=== PATIENT | female | born 1980 | race African-American/Black ===

== ENCOUNTER 2017-12-11 06:59 | Day surgery (SDC) | payer OTHER ==
[~2017-12-11] VITALS: Ht 142.2 cm; Wt 70.3 kg
[2017-12-11 07:25] VITALS: BP 136/94
[2017-12-11 12:28] VITALS: BP 146/94
== END 2017-12-11 11:50 | disposition home or self-care (01) ==
LOC: DS 06:59 → OR 11:00 → GI 11:00 → DS 11:00
PROVIDERS: Obstetrics & Gynecology
PROC: 0UDB7ZZ Extraction of Endometrium, Via Natural or Artificial Opening (ICD-10-PCS; 2017-12-11)
PROC: 0WJJ4ZZ Inspection of Pelvic Cavity, Percutaneous Endoscopic Approach (ICD-10-PCS; principal; 2017-12-11 09:00)
DX: R10.2 Pelvic and perineal pain (principal); I10 Essential (primary) hypertension; G40.909 Epilepsy, unspecified, not intractable, without status epilepticus
CPT/HCPCS: J0330; J0690; J1170; J2175; J2250; J2405; J2704; J3010; J3490; J7120

== ENCOUNTER 2018-09-03 07:19 | Observation (INO) | payer OTHER ==
--- NOTE | 2018-09-02 07:25 | NUR ---
RECEIVED LAB RESULTS FROM [facility]. HB=7.9, HCT 29.0. LABS FAXED TO DR DORANTES.
[~2018-09-03] VITALS: Ht 142.2 cm; Wt 63.5 kg
[2018-09-03 07:47] VITALS: BP 126/87
--- NOTE | 2018-09-03 11:20 | NUR ---
RECEIVED PATIENT FROM OR VIA [employer]. PATIENT IS S/P DIAGNOSTIC LAP, VITAL SIGNS STABLE; BP: 117/70 HR 100 TEMP 97.1 PULSE OX 95% RR 14, ON ROOM AIR. PATIENT C/O PAIN 06/20, BUT STATES IT IS TOLERABLE AT THIS TIME. PATIENT DENIES SOB. INCISION X 2 NOTED ON ABDOMEN, CDI& NO DRAINAGE NOTED. IV TO RH, CDI& PATENT, NO S/S OF INFILTRATION. CALL LIGHT WITHIN REACH, BED IN LOW POSITION, WILL CONTINUE TO MONITOR FOR CHANGES.
--- NOTE | 2018-09-03 13:04 | NUR ---
PT ADMITTED FOR 23 HOUR OBSERVATION FROM [facility]PS. BELONGINGS TAKEN TO 223B.
[2018-09-03 13:26] VITALS: BP 117/70
[2018-09-03 13:40] VITALS: BP 124/71
--- NOTE | 2018-09-03 14:38 | NUR ---
PATIENT C/O OF PELVIC PAIN TO LEFT SIDE 07/21, MEDICATED PATIENT WITH MOTRIN PER PROTOCOL (SEE EMAR), EDUCATED PATIENT ON PAIN MANAGEMENT AND REPOSITIONED PATIENT FOR COMFORT. WILL CONTINUE TO MONITOR FOR CHANGES, CALL LIGHT WITHIN REACH, BED IN LOW POSITION.
[2018-09-03 17:20] VITALS: BP 111/81
--- NOTE | 2018-09-03 17:30 | NUR ---
DR DORANTES AWARE PATIENT WAS C/O OF HUNGER AND WANTED SOLID FOOD, DR DORANTES GAVE TELEPHONE ORDER/ READBACK FOR REGULAR DIET. DR. DORANTES GAVE TORB FOR PATIENT TO CONTINUE HOME MEDICATION OF LISINOPRIL 20MG PO BID AND KEPPRA 500MG PO BID. WILL CARRY OUT ORDERS AT THIS TIME.
--- NOTE | 2018-09-03 18:30 | NUR ---
PATIENT RESTING IN BED, NO ACUTE DISTRESS NOTED AT THIS. PATIENT DENIES PAIN AT THIS TIME. NO ACUTE CHANGES NOTED THROUGH OUT SHIFT, PATIENT IS STABLE AT THIS TIME. TELE MONITOR IN PLACE. INCISION X2 ABDOMEN CDI & NO DRAINAGE NOTED. IV TO RH SALINE LOCK, NO S/S OF INFILTRATION. CALL LIGHT WITHIN REACH, BED IN LOW POSITION. WILL ENDORSE REPORT TO NIGHT RN.
[2018-09-03 18:37] LABS: CALCIUM 9.3 mg/dL (8.5-10.1); CARBON DIOXIDE 27.4 mmol/L (21-32); CHLORIDE SERUM 108 mmol/L (98-107); CREATININE SERUM 0.8 mg/dL (0.6-1.0); GFR1 > 60 mL/min; GLUCOSE SERUM 94 mg/dL (74-106); POTASSIUM SERUM 4.1 mmol/L (3.5-5.1); SODIUM SERUM 143 mmol/L (136-145)
--- NOTE | 2018-09-03 19:46 | NUR ---
RECEIVED PT FROM DAY SHIFT RN. PT IS ALERT AND ORIENTED TO PERSON PLACE TIME AND SITUATION AND ABLE TO FOLLOW COMMANDS. PT IS CURRENTLY RESTING IN BED WITH FAMILY AT THE BEDSIDE. PT DENIES CHEST PAIN OR SHORTNESS OF BREATH ON ROOM AIR. TELE #[address] INCISION TO ABD X2 BANDAID CDI. PT DENIES ABD PAIN AT THIS TIME. BOWEL SOUNDS ARE HYPOACTIVE. THERE IS A RIGHT HAND 22G IV THAT IS CLEAN DRY AND INTACT, SALINE LOCKED AT THIS TIME. SAFETY MEASURES ARE IN PLACE. BED IS IN THE LOWEST POSITION. CALL LIGHT IS WITHIN REACH. WILL CONITNUE TO MONITOR PT.
[2018-09-03 20:56] VITALS: BP 118/69
--- NOTE | 2018-09-03 21:17 | NUR ---
MORPHINE 4MG GIVEN FOR PAIN 10/10 IN ABD AREA. DILUTED WITH NORMAL SALINE. PUSHED OVER 5 MINUTES. PT TOLERATED WELL. NO ADVERSE REACTIONS NOTED. BREATHING EVEN AND UNLABORED.
--- NOTE | 2018-09-04 00:21 | NUR ---
PT CURRENTLY RESTING IN BED WITH EYES CLOSED. BREATHING IS EVEN AND UNLABORED. NO USE OF ACCESSORY MUSCLES. NO FACIAL GRIMMACING NOTED.
--- NOTE | 2018-09-04 03:05 | NUR ---
ADMINISTERED MORPHINE 4MG. PT COMPLAINED OF ABD PAIN 11/20. EDUCATED PT THAT SHE NEEDS TO WALK IN ORDER TO FACILITATE PERISTALSIS AND RELIEVE STOMACH ACHE. PT EATING LOTS OF CRACKERS S/P PROCEDURE.
[2018-09-04 04:46] VITALS: BP 123/60
--- NOTE | 2018-09-04 05:19 | NUR ---
PT SLEPT IN INTERVALS THROUGHOUT THE NIGHT. COMPLAINTS OF ABD PAIN. OFFERED RELAXATION TECHNIQUES AND MEDICATED PER ORDER (SEE MAR). EDUCATED PT ON THE NEED TO AMBULATE POSTOPERATIVELY IN ORDER TO RELIEVE PAIN IN ABD AREA. EDUCATED PT ON PERISTALSIS AND OFFERED MULTIPLE OCCASIONS TO WALK IN THE HALLWAY WITH PATIENT IN ORDER TO RELIEVE GAS PAINS. PT SLEPT. CURRENTLY RESTIGN IN BED WITH EYES CLOSED. NO FACIAL GRIMAMCING. BREATHING IS EVEN AND UNLABORED. NO SIGNS OF DISTRESS NOTED. SAFETY MEASURES ARE IN PLACE. BED IS IN THE LOWEST POSITION. CALL LIGHT IS WITHIN REACH. WILL ENDORSE CONTINUITY OF CARE TO THE DAY SHIFT RN.
--- NOTE | 2018-09-04 07:40 | NUR ---
PATIENT RESTING IN BED, NO ACUTE DISTRESS NOTED AT THIS TIME. TELE MONITOR IN PLACE, DENIES CHEST PAIN. PATIENT DENIES SOB, ON ROOM AIR. PATIENT DENIES PAIN AND STATES "IM GOOD, NO PAIN". INCISION X2 TO ABDOMEN IS CDI, NO DRAINAGE NOTED AT THIS TIME. PATIENT BOWELS SOUNDS X4 HYPOACTIVE, PATIENT STATES SHE HAS PASSED GAS, EDUCATED PATIENT ON THE IMPORTANCE OF AMBULATING AFTER PROCEDURE TO FACILITATE PERSTALSIS. PATIENT VERBALIZES UNDERSTANDING. IV TO RIGHT HAND SALINE LOCK, NO S/S OF INFILTRATION. CALL LIGHT WITHIN REACH, BED IN LOW POSITION, WILL CONTINUE TO MONITOR FOR CHANGES.
[2018-09-04 09:19] VITALS: BP 117/69
--- NOTE | 2018-09-04 10:25 | NUR ---
DR. DORANTES GAVE TELEPHONE ORDER/ READBACK FOR PATIENT TO BE DISCHARGE HOME. DR DORANTES STATED PATIENT WAS ONLY HERE FOR OBSERVATION. WILL CARRY OUT ORDERS AT THIS TIME, CHARGE NURSE BEVERLY MADE AWARE, AND ASSISTED WITH D/C ORDERS.
[2018-09-04 10:40] VITALS: BP 117/69
--- NOTE | 2018-09-04 11:20 | NUR ---
PATIENT WAS DISCHARGED HOME AT THIS TIME. NO ACUTE CHANGES NOTED THROUGH OUT SHIFT, PATIENT IS STABLE. PATIENT DENIES PAIN UPON DISCHARGE. PATIENT RECEIVED COPY OF D/C INSTRUCTIONS, PATIENT UNDERSTANDS AND AGREES WITH D/C INSTRUCTIONS AND PLAN OF CARE, IN CLUDING FOLLOW UP WITH PCP. PATIENT HAS SCHEDULED APPT TO FOLLOW UP WITH DR. DORANTES, PATIENT AWARE. EDUCATED PATIENT ON INCISION CARE, AND PROVIDED PATIENT WITH EDUCATIONAL MATERIAL. PATIENT UNDERSTANDS TO CONTACT PCP OR LOCAL ER IF WORSENING SYMPTOMS OCCURS SUCH SOB, PAIN, SWELLING, OR TEMP. ALL QUESTIONS & CONCERNS ADDRESSED. PATIENT TOOK HOME ALL PERSONAL BELONGINGS. PATIENT TAKEN DOWN VIA WHEELCHAIR BY DISTRICT MANAGER.
== END 2018-09-04 11:20 | disposition home or self-care (01) | DRG 229 ==
LOC: DS 07:19 → DU 09:35 → OR 10:30 → DS 10:30 → DU 11:05
PROVIDERS: ADMIT Obstetrics & Gynecology
PROC: 0WJJ4ZZ Inspection of Pelvic Cavity, Percutaneous Endoscopic Approach (ICD-10-PCS; principal; 2018-09-03 10:30)
DX: R10.2 Pelvic and perineal pain (principal); G40.909 Epilepsy, unspecified, not intractable, without status epilepticus; N73.6 Female pelvic peritoneal adhesions (postinfective); I10 Essential (primary) hypertension; Z87.442 Personal history of urinary calculi; Z98.51 Tubal ligation status
CPT/HCPCS: C1758; G0378; J0330; J0690; J1170; J2250; J2270; J2405; J2704; J3010; J3490; J7120

== ENCOUNTER 2018-10-28 08:15 | Inpatient (IN) | payer OTHER ==
[2018-10-28] VITALS (8 sets, daily range): BP systolic 126–146; BP diastolic 72–98
[~2018-10-28] VITALS: Ht 142.2 cm; Wt 64.9 kg
--- NOTE | 2018-10-28 08:50 | NUR ---
0815 PATIENT ARRIVES TO UNIT AMBULATORY AND ALERT AND ORIENTED X4. NO SOB NOTED. RESPIRATIONS EVEN AND UNLABORED. DENIES ANY DISTRESS AT THIS TIME. SKIN WARM AND DRY TO TOUCH. PATIENT PROVIDED TEACHING REGARDING PLAN OF CARE AND VERBALIZED UNDERSTANDING. MEDICAL HISTORY VERIFIED AND ALLERGIES ADDRESSED. VSS. COMFORT AND SAFETY MEASURES IN PLACE. CALL LIGHT WITHIN REACH. WILL CONTINUE TO MONITOR.
--- NOTE | 2018-10-28 10:34 | NUR ---
1000 CALLED AND SPOKE WITH YASIR AND DR. DORANTES REGARDING ADMISSION ORDERS FOR MEDICATIONS AND DIET. NEW ORDERS RECEIVED FOR REG DIET AND NPO AFTER MIDNIGHT, MEDICATIONS, AND CMP AFTER 2ND BLOOD TRANSFUSION. NOTED AND CARRIED OUT. PATIENT MADE AWARE. WILL CONTINUE TO MONITOR.
--- NOTE | 2018-10-28 14:20 | NUR ---
RECEIVED PT FROM OUPATIENT. ORIENTED PT TO ROOM AND SURROUNDINGS. IV NOTEDT TO RAC PATENT AND INTACT. INSTRUCTED PT ON THE USE OF CALL LIGHT FOR ASSISTANCE. ENDORSED PT TO PRIMARY NURSE STACIA
--- NOTE | 2018-10-28 14:22 | NUR ---
RECEIVED PATIENT FROM SURU RN AT THIS TIME. PATIENT IS AMBULATING IN ROOM. ALERT AND ORIENTED, DENIES ANY PAIN OR DISCOMFORT AT THIS TIME. HL PATENT RT A/C 20G. AWAITING DR DORANTES TO COME INTO SIGN BLOOD CONSENT SO BLOOD TRANSFUSION CAN BE GIVEN ORDERED. NO ACUTE DISTRESS NOTED.
--- NOTE | 2018-10-28 14:49 | NUR ---
1045 PATIENT ALERT AND AWAKE AND ABLE TO MAKE ALL NEEDS KNOWN. NO SOB NOTED. RESPIRATIONS EVEN AND UNLABORED. PATIENT ADMINISTERED MEDICATIONS ORDERED. PATIENT COMPLAINING OF LOWER ABD PAIN. PATIENT PROVIDED COMFORT MEASURES AND ADMINISTERED PAIN MEDICATIONS FOR PAIN MANAGEMENT. WILL EVALUATE FOR EFFECTIVENESS. COMFORT AND SAFETY MEASURES IN PLACE. WILL CONTINUE TO MONITOR. [address] DORANTES REGARDING REQUIREMENT OF MD SIGNATURE ON BLOOD CONSENT PRIOR TO BLOOD TRANSFUSION ADMINISTRATION. PER OFFICE STATES THAT DR. DORANTES WILL BE ABLE TO SIGN CONSENT LATER THIS AFTERNOON. NOTIFIED PATIENT WITH PATIENT VERBALIZING UNDERSTANDING. PATIENT MADE COMFORTABLE. DENIES ANY PAIN AT THIS TIME. PATIENT TOLERATING PO INTAKE WITH NO COMPLAINTS. WILL CONTINUE TO MONITOR.
--- NOTE | 2018-10-28 14:55 | NUR ---
1355 PATIENT TRANSPORTED TO FLOOR FOR ADMISSION AT THIS TIME VIA [facility] AND ACCOMPANIED BY TEA LEAF READER. PATIENT ALERT AND AWAKE AND ABLE TO MAKE ALL NEEDS KNOWN. ENDORSEMENT GIVEN VIA TELEPHONE TO SURU RN. PATIENT DENIES ANY DISTRESS AT THIS TIME. PATIENT BELONGINGS GIVEN TO PATIENT AND PLACED IN BACK OF [facility]. ALL NEEDS MET.
--- NOTE | 2018-10-28 15:28 | NUR ---
PATIENT SITTING UP IN BED WATCHING TV. REQUESTED JELLO AND CRACKERS. NO C/O PAIN OR DISCOMFORT. NO ACUTE DISTRESS OTED. AWAITING DR DORANTES TO COME IN TO SEE PATIENT THIS AFTERNOON.
--- NOTE | 2018-10-28 17:15 | NUR ---
FIRST UNIT OF PRBC'S STARTED AT THIS TIME ORDERED. CONSENT VERIFIED AND SIGNED BY DR DORANTES AND BY PATIENT. UNIT AND PATIENT VERIFIED BY TWO NURSES PER PROTOCOL. NAME BAND AND BLOOD BANK BAND VERIFIED BY TWO NURSES WELL. VITALS TAKES PRIOR TO START OF TRANSFUSION. PATIENT IS SITTING UP IN BED TALKING ON PHONE. INSTRUCTED PATIENT TO CALL FOR NURSE IF SHE EXPERIENCES ANY CHILLS, FEVER OR ANY OTHER NOTED CHANGE IN HER CONDITION. PATIENT VERBALIZES UNDERSTANDING. WILL CONTINUE TO MONITOR.
--- NOTE | 2018-10-28 17:33 | NUR ---
PATIENT SITTING UP IN BED WATCHING TV. NO S/S OF ANY ADVERSE REACTIONS NOTED FROM BLOOD TRNASFUSION. VITALS STABLE. WILL CONTINUE TO MONITOR.
--- NOTE | 2018-10-28 17:59 | NUR ---
PATIENT SITTING UP IN BED EATING DINNER TRAY. BLOOD TRANSFUSION IN PROGRESS. NO S/S OF ANY ADVERSE REACTION NOTED. PATIENT INFORMED OF THE NEED FOR URINE SPECIMEN. PATIENT VERBALIZED UNDERSTANDING. [facility]
--- NOTE | 2018-10-28 19:00 | NUR ---
RECEIVED PT SITTING UP IN BED WATCHING TV, NO ACUTE DISTRESS OBSERVED. DENIES PAIN OR DISCOMFORT AT THIS TIME. PT WITH HISTORY OF ENDOMETRIOSIS, SCHEDULED HYSTERECTOMY TOMORROW 10/29/[address] MAINOR DORANTES. CONFIRMED CONSENT TO SURGERY SIGNED IN CHART, CONSENT TO ANESTHESIA SIGNED IN CHART. CHECKLIST INITITATED. PT AWARE FOR NEED TO BE NPO AT MIDNIGHT, PT AGREED AND VERBALIZED UNDERSTANDING. FIRST UNIT OF PRBC INFUSING ORDERED VIA IV TO RAC, DRY PATENT, INTACT, AND INFUSING WELL, NO S&S PHLEBITIS OR INFILTRATION NOTED. PT C/O INTERMITTENT PELVIC/VAGIANL PAIN/PRESSURE, WILL MEDICATE WITH PAIN MEDS PRN. AA/OX4, ABLE TO MAKE NEEDS KNOWN, SPEECH CLEAR AND APPROPRIATE. MED-SURG, NO TELE, NO CP. PULSES PALPABLE AND EQUAL THROUGHOUT, NO EDEMA. BREATHING ON RA, EVEN AND UNLABORED, DENIES SOB OR DYSPNEA, LUNGS CTA. ABD ROUND AND SOFT WITH ACTIVE BOWEL SOUNDS, DENIES N/V/D. VOIDS FREELY WITH BRP. PT AWARE FOR NEED TO COLLECT UA AND HCG. AMBULATORY AND ABLE TO REPOSITION SELF IN BED. COMFORT AND SAFETY MEASURES IN PLACE. ALL NEEDS ASSESSED AND ATTENDED TO. CALL LIGHT WITHIN REACH. WILL CONTINUE TO MONITOR
--- NOTE | 2018-10-28 21:30 | NUR ---
BLOOD TRANSFUSION INTIATED ORDERED. PRE-VS: 97.7, HR-89, 143/80, RR-18, 96% ON RA. EDUCATED PT ON S/S OF ADVERSE REACTIONS, PT VERBALIZES UNDERSTANDING. BLOOD TRANSFUSION INFUSING WELL AT 70 ML/HR TO RAC, SITE WNL. NO ACUTE DISTRESS OBSERVED. WILL CONTINUE TO MONITOR.
--- NOTE | 2018-10-28 21:45 | NUR ---
BLOOD TRANSFUSION INFUSING WELL AFTER 15 MIN. VSS: 98.7, HR 81, 133/89, RR 18, 100% ON RA. PT DENIES HAVING ANY S/S OF ADVERSE REACTIONS. BLOOD TRANSFUSION INCREASED TO 150 ML/HR. IV SITE WNL. NO DISTRESS NOTED. CALL LIGHT WITHIN REACH. PRIMARY NURSE UPDATED REGARDING THE BLOOD TRANSFUSION.
[2018-10-28 23:19] LABS: UA SPECIFIC GRAVITY <=1.005 (1.005-1.035); microscopic required? YES; urine erythrocyte TRACE (NEGATIVE)
[2018-10-29 00:05] VITALS: BP 146/98
--- NOTE | 2018-10-29 00:05 | NUR ---
BLOOD TRANSFUSION COMPLETE. VSS: 98.0, HR 91, 146/98, RR 18, 99% ON RA. PT DENIES HAVING ANY S/S OF ADVERSE REACTIONS. NO ACUTE DISTRESS OBSERVED. IV TO RAC PATENT AND INTACT. CALL LIGHT WITHIN REACH. PRIMARY NURSE MARGARITA ROCA UPDATED.
--- NOTE | 2018-10-29 00:12 | NUR ---
2ND UNIT PRBC TRANSFUSION DONE. PT TOLERATED WELL. VITAL SIGNS STABLE. STAT CBC ORDERED POST TRANSFUSION. WILL ANTICIPATE
[2018-10-29 00:43] LABS: BASOPHIL % 0.1 % (0-2); PLATELET COUNT 308 x10^3mcL (130-400)
[2018-10-29 00:44] LABS: RED CELL DISTRIBUTION WIDTH 28.7 % (11.5-14.5)
[2018-10-29 00:57] LABS: rbc morphology (normal/abnorm) ABNORMAL (NORMAL)
[2018-10-29 00:58] LABS: acanthocyte (spur cell) 1+; ovalocyte/elliptocyte 1+; schistocyte (helmet cell) 1+; target cell (codocyte) 1+
[2018-10-29 06:01] VITALS: BP 137/71
--- NOTE | 2018-10-29 06:15 | NUR ---
NO SIGNIFICANT CHANGES TO REPORT, PT COMPLIED WITH NURSING CARE TRHOUGHOUT THE SHIFT WITH NO ACUTE EVENTS OVERNIGHT. PT HAS BEEN NPO SINCE MIDNIGHT. NO ACUTE DISTRESS OBSERVED AT THIS TIME. PT LAYING IN BED, BREATHING EVEN AND UNLABORED. COMFORT AND SAFETY MEASURES MAINTAINED. ALL NEEDS ASSESSED AND ATTENDED TO. CALL LIGHT WITHIN REACH. WILL CONTINUE TO MONITOR AND ENDORSE CARE TO DAY SHIFT NURSE.
[2018-10-29 06:42] LABS: ALKALINE PHOSPHATASE 110 U/L (46-116); ALT/SGPT 83 U/L (14-59); AST/SGOT 26 U/L (15-37); BILIRUBIN TOTAL 0.19 mg/dL (0.20-1.00); CALCIUM 8.3 mg/dL (8.5-10.1); CARBON DIOXIDE 24.2 mmol/L (21-32); CHLORIDE SERUM 110 mmol/L (98-107); CREATININE SERUM 0.8 mg/dL (0.6-1.0); GFR1 > 60 mL/min; GLUCOSE SERUM 80 mg/dL (74-106); POTASSIUM SERUM 3.7 mmol/L (3.5-5.1); SODIUM SERUM 143 mmol/L (136-145); TOTAL PROTEIN, SERUM 6.3 g/dL (6.4-8.2)
[2018-10-29 06:53] LABS: ALBUMIN 3.1 g/dL (3.4-5.0)
--- NOTE | 2018-10-29 07:40 | NUR ---
RECEIVED PT IN BED, SLEEPING THIS TIME. ASSESSED AND DOCUMENTED. DENIES PAIN THIS TIME. SAFTEY PRECAUTIONS ARE IN PLACE. WILL MONITOR.
--- NOTE | 2018-10-29 08:58 | NUR ---
PT CALLED AND C/O VAGINAL PRESSURE AND PUBIC PAIN, 11/20. NORCO PO GIVEN ORDERED. WILL REASSESS.
[2018-10-29 09:07] VITALS: BP 137/89
--- NOTE | 2018-10-29 09:58 | NUR ---
PT IS STABLE. SLEEPING THIS TIME.
--- NOTE | 2018-10-29 11:05 | NUR ---
OR STAFF CAME AND TOOK PT TO OR FOR SURGERY. V/S RUBEN. CONSENT WAS SIGNED YESTERDAY. CHECK LIST DONE. PT WENT DOWN VIA CESAR. RUBEN.
--- NOTE | 2018-10-29 14:25 | NUR ---
RECEIVED PT FROM RECOVERY ROOM AFTER EXP.LAP AND SUPRACERVICAL HYSTRECTOMY. INCISION TO SUPRA PUBIC AREA IS CLEAN AND DRY, ABD BINDER ON. PT WAS C/O INCISIONAL PAIN WHEN SHE WAS TRANSFERED FROM [place] TO BED BUT AFTER THAT SHE WENT TO SLEEP, PT WAS DROWSY. SAFTEY PRECAUTIONS IS IN PLACE. WILL MONITOR. STABLE. V/S STABLE.
[2018-10-29 14:30] VITALS: BP 148/87
[2018-10-29 16:30] VITALS: BP 144/85
--- NOTE | 2018-10-29 16:42 | NUR ---
PT C/O SUPRAPUBIC INCISION PAIN,11/20. ADMINISTERED MORPHIN 2MG IV ORDERED. WILL REASSESS THE PT.
--- NOTE | 2018-10-29 18:05 | NUR ---
PT IS CRYING FOR SUPRAPUBIC INCISION PAIN,11/20. NORCO PO GIVEN ORDRED. WILL REASSESS.
--- NOTE | 2018-10-29 18:45 | NUR ---
PT IS CRYING AND ASKING FOR MORE PAIN MEDICINE. CALLED AND INFORMED HIM ABOUT GIVEN ALL THE PAIN MED ORDERED BUT PT STILL IN PAIN. HE ORDERED MORPHIN 4MG IV Q4 FOR SEVERE PAIN. WILL MONITOR.
--- NOTE | 2018-10-29 19:00 | NUR ---
PT C/O SUPRAPUBIC INCISION PAIN,11/20. MORPHIN IV 4MG GIVEN ORDERED.
--- NOTE | 2018-10-29 19:30 | NUR ---
PT RESTING IN BED COMFORTABLY. DENIES ANY PAIN THIS TIME. STABLE. GAVE REPORT TO FUR PULLER NURSE.
--- NOTE | 2018-10-29 19:40 | NUR ---
RECEIVED REPORT FROM DAY SHIFT RN. PT RESTING IN BED. BREATHING EVEN AND UNLABORED. NO C/O PAIN AT THIS TIME. ABD DRESSING C/D/I. ABDOMINAL BINDER IN PLACE. SHARA DRAIN WITH SEROSANGUINEOUS FLUID. CADET CATHETER IN PLACE DRAINING YELLOW URINE BY GRAVITY. IV TO RAC, SALINE LOCKED. SAFETY MEASURES IN PLACE. BED IN LOWEST POSITION. SIDE RAILS UP X2. INSTRUCTED PT TO USE THE CALL LIGHT FOR ASSISTANCE. CALL LIGHT WITHIN REACH.
[2018-10-29 20:53] VITALS: BP 125/85
--- NOTE | 2018-10-30 00:11 | NUR ---
PT C/O PRESSURE PAIN TO INCISION SITE. MEDICATED WITH MORPHINE 4 MG.
--- NOTE | 2018-10-30 01:30 | NUR ---
PT C/O INCISIONAL SITE PAIN 10/21. MEDICATED WITH NORCO.
[2018-10-30 04:15] VITALS: BP 113/69
--- NOTE | 2018-10-30 04:24 | NUR ---
PT C/O SURGICAL SITE PAIN 10/21. MEDICATED WITH MORPHINE 4 MG.
--- NOTE | 2018-10-30 05:45 | NUR ---
PT RESTED AT INTERVALS DURING SHIFT. NO SOB NOTED ON ROOM AIR. ON AND OFF C/O PAIN TO SURGICAL SITE. MEDICATED PER ORDER. PT RESTING IN BED WITH EYES CLOSED AT THIS TIME. NO DISTRESS NOTED. NO C/O N/V. DENIES PASSING FLATUS. CADET CARE DONE. SAFETY MEASURES MAINTAINED. ALL NEEDS ATTENDED TO. WILL CONTINUE TO MONITOR AND ENDORSE CARE TO ONCOMING RN.
--- NOTE | 2018-10-30 07:15 | NUR ---
RECEIVED PT. IN BED A/A/O X3. NO SOB, NO N/V NOTED. PT. C/O ABD. PAIN. IV SITE NOTED TO R AC. F/C DRAINING YELLOW URINE. ABD. BINDER IN PLACE. SCD TO BLE MAINTAINED. BED IN LOW POS., CALL LIGHT WITHIN REACH. SIDE RAILS UP X3. ENCOURAGED PT. TO BE OOB AND AMBULATE TOLERATED.
[2018-10-30 09:06] VITALS: BP 130/78
--- NOTE | 2018-10-30 15:30 | NUR ---
F/C REMOVED PER DR. DORANTES'S ORDER.
--- NOTE | 2018-10-30 17:59 | NUR ---
SHARA OUTPUT= 25CC (SEROSANGUINEOUS). WILL CONTINUE TO MONITOR.
[2018-10-30 18:00] VITALS: BP 137/80
--- NOTE | 2018-10-30 19:45 | NUR ---
RECEIVED REPORT FROM DAY SHIFT RN. PT RESTING IN BED. AA&O X4. NO SOB NOTED. C/O PAIN TO ABD. MEDICATED BY DAY SHIFT RN. PT STATES WILL WAIT WHEN MORPHINE 4 MG IS DUE. ASSISTED PT WITH REPOSITIONING. ABD DRESSING AND ABD BINDER IN PLACE, C/D/I. SHARA DRAIN WITH SEROSANGUINEOUS FLUID. SAFETY MEASURES IN PLACE. BED IN LOWEST POSITION. SIDE RAILS UP X2. INSTRUCTED PT TO USE THE CALL LIGHT FOR ASSISTANCE. CALL LIGHT WITHIN REACH.
--- NOTE | 2018-10-30 20:56 | NUR ---
PT C/O SURGICAL INCISION PAIN 11/20. MEDICATED WITH MORPHINE (SEE EMAR).
--- NOTE | 2018-10-30 22:41 | NUR ---
PT C/O ABD PAIN 11/20. NORCO GIVEN.
[2018-10-31] VITALS (7 sets, daily range): BP systolic 114–146; BP diastolic 75–97
--- NOTE | 2018-10-31 01:12 | NUR ---
C/O INCISION SITE PAIN 09/20, MEDICATED WITH MORPHINE (SEE EMAR).
--- NOTE | 2018-10-31 05:16 | NUR ---
C/O ABD PAIN 11/20. MORPHINE GIVEN.
--- NOTE | 2018-10-31 06:37 | NUR ---
PT RESTED IN INTERVALS THROUGHOUT SHIFT. NO RESPIRATORY DISTRESS NOTED ON ROOM AIR. C/O ABD INCISION SITE PAIN X4 MEDICATED PER ORDER (SEE EMAR). NO C/O NAUSEA/VOMITING. PT AMBULATED TO THE BATHROOM. DRESSING TO ABD AND ABD BINDER IN PLACE, C/D/I. SHARA DRAIN WITH 30 ML SEROSANGUINEOUS OUTPUT. SAFETY MEASURES MAINTAINED. ALL NEEDS ATTENDED TO. CALL LIGHT WITHIN REACH. WILL ENDORSE CONTINUITY OF ACRE TO ONCOMING RN.
--- NOTE | 2018-10-31 08:00 | NUR ---
RECEIVED PATIENT FROM ABELINO VOGEL. PATIENT IN BED RESTING, MILD ABDOMINAL PAIN AT THIS TIME. DR DORANTES IN TO SEE PATIENT AND TO REMOVED SHARA DRAINAGE. DRAINAGE REMOVED AND PATIENT TOLERATED. DR DORANTES STATES IF PASSING GAS OR BM PATIENT WOULD BE ABLE TO BE DC, PATIENT AWARE AND AGREES. OTHERWISE, PATIENT WILL STAY ADDITIONAL DAY, ENCOURAGE TO AMBULATE TO MOVE BOWELS. PATIENT ALSO AGREES AND AWARE. CALL LIGHT IN REACH AT THIS TIME.
--- NOTE | 2018-10-31 10:52 | NUR ---
PATIENT CONTINUES TO HAVE ABDOMINAL PAIN. PRN NORCO PO GIVEN, PATIENT STATES SHE WILL TRY TO AMBULATE MORE THIS SHIFT, PATIENT REFUSES ENEMA AT THIS TIME. WILL CONTINUE TO MONITOR FOR PAIN OR FLATUS. CALL LIGHT IN REACH.
--- NOTE | 2018-10-31 14:50 | NUR ---
PATIENT SEEN AMBULATING TO BR, NO BM AT THIS TIME. PATIENT RETURNED TO BED AND ASKED FOR PRN PAIN CONTROL. REMINDED PATIENT THAT AMBULATION WILL HELP WITH BM AND PAIN. CALL LIGHT IN REACH AT THIS TIME.
--- NOTE | 2018-10-31 18:15 | NUR ---
PATIENT STATES THAT SHE HAS PASSED MILD AMOUNTS OF FLATUS. STATES THAT HER ABDOMINAL PAIN "IS MUCH BETTER" BUT STILL CONTINUES TO HAVE SURGICAL INCISION SORENESS. OFFERED PATIENT TO PAGE DR DORANTES BUT PATIENT PREFERRED TO "WAIT UNTIL LATER TO SEE HOW [SHE] FEELS". WILL ENDORSE TO ONCOMING NURSE. PRN NORCO PO ADMINISTERED. CALL LIGHT IN REACH.
--- NOTE | 2018-10-31 19:50 | NUR ---
RECEVIED RPT FROM DAY SHIFT NURSE. PT IS A/O X4. SPEECH IS CLEAR. DENIES NUNEZ. BP IS 121/77 HR 104. PULSES ARE MODERATE AND EQUAL ON ALL FOUR EXTREMITIES. LUNGS ARE CTA ON RA WITH 02 SAT OF 100. BOWEL SOUNDS ARE ACTIVE IN ALL FOUR QUADRANTS. ABD IS SOFT AND NONDISTENDED. ABD BINDER IS PRESENT FROM SUPRAPUBIC SURGICAL INCISIONS W LILIA. SINCE HYSTERECTOMY PT HAS BEEN ABLE TO PASS GAS, BUT SHE HAS BEEN UNABLE TO HAVE A BM SINCE 10/28. PT IS C/O PAIN ON ABD 07/21. WILL MEDICATE PER APR. IV TO RAC IS INTACT AND PATENT. NO REDNESS OR SWELLING. INSTRUCTED PT TO USE CALL LIGHT TO ASSIST TO THE RESTROOM OR IF ANY MORE PAIN. CALL LIGHT IS WITHIN REACH. BED IN LOWEST POSITION. WILL CONTINUE TO MONITOR.
--- NOTE | 2018-10-31 20:45 | NUR ---
ROUTINE MEDICATIONS WERE GIVEN AND TOLERATED WELL. PT C/O PAIN 810 IN HER ABD. WILL MEDICATE PER APR AND REASSESS EFFECTIVENESS. CALL LIGHT WITHIN REACH. BED IN LOWEST POSITION. WILL CONTINUE TO MONITOR.
--- NOTE | 2018-10-31 22:40 | NUR ---
PT WAS WALKING AROUND AND BEGAN TO HAVE PAIN 09/20. PAIN MEDICATIONS ARE NOT DUE. ENCOURAGED PT TO DEEP BREATH AND RELAX. WILL CONTINUE TO MONITOR AND WILL REASSESS PAIN LEVEL WHEN MED IS DUE.
--- NOTE | 2018-10-31 23:31 | NUR ---
PT C/O SURGICAL PAIN 08/20. MEDICATED NORCO 5/325 MG PO ORDERED. WILL CONTINUE TO MONITOR.
--- NOTE | 2018-11-01 01:33 | NUR ---
PT IS ASLEEP BUT EASILY AROUSABLE WHEN SPOKEN TO. PT DENIES PAIN AT THIS TIME. BREATHING IS EVEN AND UNLABORED. NO RESP. DISTRESS. CALL LIGHT WITHIN REACH. BED IN LOWEST POSITION. WILL CONTINUE TO MONITOR.
--- NOTE | 2018-11-01 03:02 | NUR ---
PT IS C/O 8/10 SURGICAL SITE PAIN. MEDICATED WITH MORPHINE PER APR ORDER. WILL REASSESS EFFECTIVENESS. BED IN LOWEST POSITION. CALL LIGHT WITHIN REACH.
--- NOTE | 2018-11-01 04:19 | NUR ---
PT REFUSED ENEMA. EXPLAINED THE BENEFITS, BUT PT STILL REFUSED.
[2018-11-01 05:48] VITALS: BP 121/70
--- NOTE | 2018-11-01 05:56 | NUR ---
PT SLEPT IN INTERVALS THROUGHOUT THE NIGHT. PT COMPLIED WITH NURSING CARE THROUGHOUT THE SHIFT W/ NO ACUTE EVENTS OVERNIGHT. COMFORT AND SAFETY MEASURES MAINTAINED. ALL NEEDS ASSESSED AND ATTENDED TO. WILL CONTINUE TO MONITOR AND ENDORSE CARE TO DAY SHIFT NURSE.
--- NOTE | 2018-11-01 07:10 | NUR ---
RECEIVED PT FROM RESIDENT ASSISTANT RN. Viviana/GURJIT. MED SURG. DENIES CHEST PAIN/PRESSURE. RESPIRATIONS EQUAL AND UNLABORED ON RA. DENIES SOB. PT STATES ABDOMINAL PAIN IS TOLERABLE AT THIS TIME. PT ASKING TO GO HOME. PT STATES "I HAVENT BEEN ABLE TO POOP BUT I HAVE BEEN PASSING GAS AND BURPING. I AM READY TO GO HOME." PT ASKING TO EAT SOMETHING OTHER THAN LIQUIDS." IV PATENT AND INFUSING TO RAC. NO REDNESS OR SWELLING NOTED. WILL CONTINUE TO MONITOR. CALL LIGHT IN REACH. BED IN LOWEST POSITION.
--- NOTE | 2018-11-01 07:20 | NUR ---
ENDORSED CARE TO VIKAS ROCA.
--- NOTE | 2018-11-01 07:29 | NUR ---
PT ASKING TO EAT A REGULAR DIET FOR BREAKFAST. SPOKE WITH DR. DORANTES AND INFORMED HIM PT HAS STILL NOT HAD A BM, PT REFUSED ENEMA, PT IS PASSING GAS AND BURP AND PT WOULD LIKE TO BE DISCHARGED TODAY. PER DR. DORANTES PT OKAY TO HAVE A REGULAR DIET FOR BREAKFAST, PT OKAY TO BE D/C TODAY.
[2018-11-01 08:16] VITALS: BP 133/72
--- NOTE | 2018-11-01 09:08 | NUR ---
PT IN BED RESTING. NO ACUTE RESP DISTRESS NOTED ON RA. PT C/O PAIN 07/21 ABDOMEN AND NUNEZ. PT MEDICATED PER EMAR. GIVEN PO MEDS. TOLERATED WELL. WILL CONTINUE TO MONITOR. CALL LIGHT IN REACH. BED IN LOWEST POSITION.
--- NOTE | 2018-11-01 11:37 | NUR ---
PT ASKING TO GO HOME. PT STATES "I WAS GIVING MY PRESCRIPTIONS AND HAVE THEM AT HOME" CALLED DR. DORANTES FOR DISCHARGE ORDER, NO ANSWER, LEFT MESSAGE AWAITING CALL BACK.
[2018-11-01 12:02] VITALS: BP 133/72
--- NOTE | 2018-11-01 12:30 | NUR ---
PT SITTING UP IN BED. NO ACUTE RESP DISTRESS NOTED ON RA. PT GIVEN DISCHARGE INSTRUCTIONS. PT ENCOURAGED TO CONTINUE LIGHT ACTIVITY TOLERATED. PT STATES "I ALREADY HAVE MY PRESCRIPTIONS AT HOME AND I ALREADY MADE MY FOLLOW UP APPOINTMENT WITH DR. DORANTES." PT INFORMED OF FOLLOW UP APPOINTMENT SCHEDULED WITH PCP DR. PENN ON 11/06 AT 10 AM. PT STATES "I WILL CALL TO RESCHEDULE THAT APPOINTMENT." PHOTO TAKEN OF ABDOMINAL INCISION. PT ENCOURAGED TO KEEP ABDOMINAL INCISION CLEAN AND DRY UNTIL PT SEES DR. DORANTES. PT VERBALIZED UNDERSTANDING. PT ENCOURAGED TO MONITOR FOR SIGNS OF FEVER, FOUL ODOR FROM INCISION SITE, DRAINAGE, OR ANY SEVERE PAIN AND TO RETURN TO ER OR CALL DR. DORANTES OFFICE. PT VERBALIZED UNDERSTANDING. PT PROVIDED WITH HEALTH SUMMARY AND AFTER CARE SURGERY. IV TO RAC REMOVED CATHETER INTACT. NO REDNESS OR SWELLING NOTED. ALL QUESTIONS AND CONCERNS ADDRESSED. NO PROBLEMS ENCOUNTERED. PT ASKING FOR A CAB TO BE CALLED, PT STATES "I AM AWARE I NEED TO PAY FOR IT"
--- NOTE | 2018-11-01 12:53 | NUR ---
PT ASKING FOR A CAB TO PICK HER UP AND DRIVE HER HOME. CALLED MAINTENANCE ANALYST, MAINTENANCE ANALYST SET UP CAB FOR PT PER MAINTENANCE ANALYST CAB WILL ARRIVE IN NEXT 45 MINUTES TO AN HOUR. PT MADE AWARE.
== END 2018-11-01 13:39 | disposition home or self-care (01) | DRG 513 ==
LOC: DU 08:15 → MU 08:15 → DU 10-29 12:00 → MU 11-01 13:39
PROVIDERS: ADMIT Obstetrics & Gynecology
PROC: 30233N1 Transfusion of Nonautologous Red Blood Cells into Peripheral Vein, Percutaneous Approach (ICD-10-PCS; 2018-10-28)
PROC: 0UT90ZL Resection of Uterus, Supracervical, Open Approach (ICD-10-PCS; principal; 2018-10-29 12:00)
DX: N80.0 Endometriosis of uterus (principal); D64.9 Anemia, unspecified; N92.1 Excessive and frequent menstruation with irregular cycle; Z98.51 Tubal ligation status
CPT/HCPCS: G0378; J0330; J0690; J1170; J2250; J2270; J2405; J2704; J2710; J2765; J3010; J3490; J7040; J7050; J7120; P9016; Q0163